=== PATIENT | female | born 1970 | race Caucasian/White ===

== ENCOUNTER 2017-01-30 12:13 | Inpatient (IN) | payer MEDICAID ==
[2017-01-30 14:43] LABS: BASOPHILS # (AUTO) 0.1 X10^3/uL (0.0-0.1); BASOPHILS % (AUTO) 0.7 % (0.2-1.0); EOSINOPHILS # (AUTO) 0.1 x10^3/uL (0.0-0.2); HEMATOCRIT 37.8 % (36.0-47.0); HEMOGLOBIN 12.6 g/dL (12.0-16.0); LYMPHOCYTES # (AUTO) 2.2 X10^3/uL (1.3-2.9); LYMPHOCYTES % (AUTO) 17.8 % (21.0-51.0); MEAN CORPUSCULAR HEMOGLOBIN 29.5 pg (27.0-34.0); MEAN CORPUSCULAR HGB CONC 33.4 g/dL (33.0-35.0); MEAN CORPUSCULAR VOLUME 88.4 fL (80.0-100.0); MEAN PLATELET VOLUME 8.7 fL (7.4-11.0); MONOCYTES # (AUTO) 0.6 x10^3/uL (0.3-0.8); MONOCYTES % (AUTO) 5.1 % (0.0-13.0); NEUTROPHILS # (AUTO) 9.3 x10^3/uL (2.2-4.8); NEUTROPHILS % (AUTO) 75.4 % (42.0-75.0); PLATELET COUNT 601 X10^3/uL (150.0-450.0); RED BLOOD COUNT 4.28 X10^6/uL (3.5-5.4); WHITE BLOOD COUNT 12.3 X10^3/uL (3.6-10.0)
[2017-01-30 14:55] LABS: ALANINE AMINOTRANSFERASE 26 Units/L (12-78); ALBUMIN 2.5 g/dL (3.4-5.0); ALKALINE PHOSPHATASE 206 Units/L (46-116); ASPARTATE AMINO TRANSFERASE 28 Units/L (15-37); BLOOD UREA NITROGEN 11 mg/dL (7-18); CALCIUM 8.7 mg/dL (8.5-10.1); CARBON DIOXIDE 23.2 mmol/L (21-32); CHLORIDE 104 mmol/L (98-107); COR CA(FOR HYPOALB) 9.9 mg/dL (8.5-10.1); CREATININE 0.88 mg/dL (0.55-1.02); SODIUM 138 mmol/L (136-145); TOTAL PROTEIN 7.6 g/dL (6.4-8.2); eGFR BLACK RACES > 60 (>60); eGFR NON BLACK RACES > 60 (>60)
[2017-01-30 15:01] LABS: PLATELET MORPHOLOGY COMMENT NORMAL (NORMAL)
[2017-01-30] MEDS: NS 1000 ML 1,000 ML IV SCH (15:24)
[2017-01-30] MEDS: PERCOCET TAB 5/325 MG PO PRN ×2 (15:38→21:20)
[2017-01-30] MEDS: NICOTINE PATCH TD SCH (15:39)
[2017-01-30] MEDS: VANCOMYCIN HCL 500 MG VIAL 500 MG, VANCOMYCIN HCL 1 GM VIAL 1 GM in D5W 250 ML IV 250 ML IV SCH ×2 (16:35→21:45)
[2017-01-30] MEDS: ZOFRAN INJ 4 MG VIAL IVP PRN (17:06)
[2017-01-30] MEDS: MORPHINE SULFATE INJ 2 MG INJ IVP PRN ×2 (17:27→21:40)
[2017-01-30] MEDS ORDERED: NS 100 ML IV 100 ML IV ONE (17:29)
--- NOTE | 2017-01-30 18:17 | DR.H&P ---
H&P - History & Physical for Day of: H&P Date: 01/30/17 - Chief Complaint Chief Complaint: Right ankle pain with wound - Allergies Allergies/Adverse Reactions: Allergies Allergy/AdvReac Type Severity Reaction Status Date / Time MS Limonoclopramrose AdvReac Verified 03/22/16 15:04 [[facility] - History of Present Illness History of Present Illness: The patient is a 47-year-old white female who presents to the clinic with complaints of increasing pain to the right ankle area. The patient has aan open wound to the right lateral ankle. States 5 months ago she fractured the ankle and had an ORIF with plates and screws placed. States that [address] Michael Gilliam, orthopedist stated that it was not healing right. Patient states that one week ago the surgical site opened up. States that it is increasing in tenderness. States that she cannot put weight on it now. The patient did present to the emergency room at [facility] in [place] and x-ray is unremarkable. Culture did reveal mild staph aureus sensitive to the clindamycin that she's been on. Patient states she is having difficulty taking the clindamycin due to makes her sick on her stomach and she has been throwing up. Patient also states that she has been diagnosed with cancer. Stated she had blood work done at her [facility] that showed presentably as CEA of 7. States that her female workup was negative. States they think she may have colon cancer. States that no further workup has been obtained. States that she does have bleeding with bowel movements and bowel movements are diarrhea. Denies any specific abdominal discomfort. - Past Medical History Past Medical History: CHF, COPD, [place] Additional Medical History: Bronchitis, Sleep Apnea w/ Trilogy, Back Pain, Degenerative Disc Disease, Scoliosis - Past Surgical History Surgical History: Appendectomy, Ortho Surgery, Tonsillectomy Additional Surgical History: Back surgery x2, Neck Surgery x3 - Family History Family Medical History: Diabetes Mellitus, Cancer - Social History Does patient currently use any type of tobacco product: Yes Have you used tobacco products in the last 12 months: Yes Type of Tobacco Use: Cigarettes Does any household member use tobacco: No Alcohol Use: None Drug Use: None - Medications Home Medications: Clonazepam 1 tab PO BID 01/30/17 [History Confirmed 01/30/17] Hydrocodone-Acet 5 mg/325 mg [NORCO 5 MG/325 MG *] 1 tab PO Q4H PRN 01/30/17 [ History Confirmed 01/30/17] Loratadine 10 mg 24-Hr Tab [LORATADINE 10 MG *] 1 tab PO DAILY 01/30/17 [ History Confirmed 01/30/17] Ondansetron HCl [ZOFRAN TAB 4 MG *] 1 tab PO Q4H PRN 01/30/17 [History Confirmed 01/30/17] - Review of Systems Constitutional: Weakness Eyes: No Symptoms Reported ENT: No Symptoms Reported Respiratory: No Symptoms Reported Cardiovascular: No Symptoms Reported Gastrointestinal: Diarrhea, Melena Genitourinary: No Symptoms Reported Musculoskeletal: Other (Ankle pain) Skin: Wound (right ankle) Neurological: No Symptoms Reported - Physical Exam Vital Signs: Temperature 98.3 F Pulse Rate [Left Radial] 98 Respiratory Rate 20 Blood Pressure [Right Arm] 134/79 Blood Pressure [Left Arm] 118/78 Blood Pressure 98/52 O2 Sat by Pulse Oximetry 99 Oriented: Normal Eyes: Normal Ear: Normal Nose: Normal Throat: Normal Respiratory: Clear Throughout Cardiovascular: Normal : Normal Auscultation: Bowel Sounds: Normal Palpation: Normal Tenderness: Normal Skin: Normal Musculoskeletal: Right, Ankle, Tender Psychiatric: Normal Mood Description: Calm Affect: Normal Speech Pattern: Clear - Assessment/Plan (1) Wound of right ankle Status: Acute Plan: CT ankle, Vancomycin (2) Lower GI bleed Status: Acute Plan: CT Abd/Pelvis, Occult blood, CEA (3) Right ankle pain Status: Acute Plan: CT ankle, COnsult Ortho.
[2017-01-30] MEDS ORDERED: ZOFRAN TAB 4 MG PO PRN (18:21)
[2017-01-30] MEDS ORDERED: PERCOCET TAB 5/325 MG PO PRN (18:21)
[2017-01-30] MEDS ORDERED: LASIX PO SCH (19:00)
--- NOTE | 2017-01-30 19:00 | CT ---
CT right lower leg without contrast Indication: Open wound, history of old lower leg fracture. Comparison: None Technique: CT images of the right lower leg from the knee to the ankle were obtained without contrast . Automatic exposure control was utilized. Findings: There is chronic healed distal fibular fracture status post ORIF with lateral buttress plat e and screw construct and single obliquely oriented screw. There are also healed fractures of the med ial malleolus and posterior malleolus with screw fixation. No evidence for hardware failure or loosen ing. No acute fracture or subluxation is identified. No gross osteolysis or bony erosions identified. There is a small non fused os trigonum. There is skin defect overlying the midportion of the fibular buttress plate with adjacent subcutaneou s thickening. No obvious collection is identified, within the limitations of a noncontrast CT. There is minimal subcutaneous edema of the anterior and medial ankle without skin defect. Impression: Healed distal fibular and tibial fractures status post ORIF with skin ulceration overlying the fibula r sideplate. No evidence for osteomyelitis or obvious soft tissue collection to suggest abscess, with in the limitations of a noncontrast CT. Reported By:
[2017-01-30] MEDS: SINEquan PO SCH (21:19)
[2017-01-30] MEDS: NEURONTIN CAP 300 MG PO SCH (21:19)
[2017-01-30] MEDS: KLONOPIN TAB 1 MG PO SCH (21:19)
[2017-01-30 21:41] LABS: BILIRUBIN,URINE NEGATIVE (NEGATIVE); BLOOD/HEMOGLOBIN,URINE 1+ (NEGATIVE); GLUCOSE, URINE NEGATIVE (NEGATIVE); KETONES,URINE NEGATIVE (NEGATIVE); LEUKOCYTE ESTERASE ,URINE NEGATIVE (NEGATIVE); NITRITES,URINE NEGATIVE (NEGATIVE); PROTEIN,URINE 1+ (NEGATIVE); UROBILINOGEN,URINE NORMAL (NORMAL)
[2017-01-30 21:50] LABS: APPEARANCE,URINE CLEAR (CLEAR); BACTERIA,URINE 1+ /HPF (NEGATIVE); COLOR,URINE YELLOW (YELLOW); HYALINE CASTS, URINE RARE /LPF (NEGATIVE); SQUAMOUS EPITHELIAL CELL,UR FEW /HPF (NEGATIVE)
[2017-01-30 21:53] VITALS: BMI 27.4
[2017-01-30] MEDS: PROVENTIL NEB TX 0.083% 2.5MG/ 3ML NEB SCH (23:54)
[2017-01-31] MEDS: MORPHINE SULFATE INJ 2 MG INJ IVP PRN ×6 (01:38→22:16)
[2017-01-31] MEDS: PERCOCET TAB 5/325 MG PO PRN ×4 (03:20→22:23)
[2017-01-31] MEDS: PROVENTIL NEB TX 0.083% 2.5MG/ 3ML NEB SCH ×3 (05:24→17:30)
[2017-01-31] MEDS: NS 1000 ML 1,000 ML IV SCH ×3 (05:32→15:40)
[2017-01-31] MEDS: NEURONTIN CAP 300 MG PO SCH ×3 (05:33→22:23)
[2017-01-31 05:37] LABS: ALANINE AMINOTRANSFERASE 20 Units/L (12-78); ALBUMIN 2.2 g/dL (3.4-5.0); ALKALINE PHOSPHATASE 173 Units/L (46-116); ASPARTATE AMINO TRANSFERASE 19 Units/L (15-37); BLOOD UREA NITROGEN 15 mg/dL (7-18); CALCIUM 8.4 mg/dL (8.5-10.1); CARBON DIOXIDE 23.4 mmol/L (21-32); CHLORIDE 101 mmol/L (98-107); COR CA(FOR HYPOALB) 9.8 mg/dL (8.5-10.1); CREATININE 0.99 mg/dL (0.55-1.02); SODIUM 134 mmol/L (136-145); TOTAL PROTEIN 6.4 g/dL (6.4-8.2); eGFR BLACK RACES > 60 (>60); eGFR NON BLACK RACES > 60 (>60)
[2017-01-31 06:21] LABS: BASOPHILS # (AUTO) 0.1 X10^3/uL (0.0-0.1); BASOPHILS % (AUTO) 0.6 % (0.2-1.0); EOSINOPHILS # (AUTO) 0.2 x10^3/uL (0.0-0.2); EOSINOPHILS % (AUTO) 1.9 % (0.9-2.9); HEMATOCRIT 34.5 % (36.0-47.0); HEMOGLOBIN 11.4 g/dL (12.0-16.0); LYMPHOCYTES # (AUTO) 2.3 X10^3/uL (1.3-2.9); LYMPHOCYTES % (AUTO) 19.5 % (21.0-51.0); MEAN CORPUSCULAR HEMOGLOBIN 29.6 pg (27.0-34.0); MEAN CORPUSCULAR HGB CONC 33.1 g/dL (33.0-35.0); MEAN CORPUSCULAR VOLUME 89.5 fL (80.0-100.0); MEAN PLATELET VOLUME 9.2 fL (7.4-11.0); MONOCYTES # (AUTO) 1.1 x10^3/uL (0.3-0.8); MONOCYTES % (AUTO) 9.3 % (0.0-13.0); NEUTROPHILS % (AUTO) 68.7 % (42.0-75.0); PLATELET COUNT 501 X10^3/uL (150.0-450.0); RED BLOOD COUNT 3.85 X10^6/uL (3.5-5.4); RED CELL DISTRIBUTION WIDTH 16.8 % (11.6-16.5); WHITE BLOOD COUNT 11.6 X10^3/uL (3.6-10.0)
--- NOTE | 2017-01-31 06:52 | CT ---
CT abdomen and pelvis without and with contrast Indication: GI bleed Comparison: None Technique: CT images of the abdomen and pelvis were obtained without and with IV contrast. Oral contr ast was also administered. Automatic exposure control was utilized. Findings: Previous posterior interbody fusion L4-5 is noted. No aggressive osseous lesions. There is a small right pleural effusion. Noncontrast CT: No urinary stones or radiopaque cholelithiasis identified. There is a 9 mm calcificat ion of the pancreatic head. Postcontrast CT: The liver, gallbladder, spleen, stomach, duodenum, pancreas, adrenals, and kidneys d emonstrate no significant abnormality. The oral contrast is present to the level of the cecum, with t he majority in the distal jejunum and ileum. No significant bowel thickening or dilatation of the low er GI tract identified. No abnormal intraluminal density of the bowel to suggest overt bleed. Previou s appendectomy is noted. The uterus and ovaries are noted. The urinary bladder and rectum are unremar kable. No free fluid or adenopathy. Impression: 1. No GI bleed identified, although the examination is limited secondary to administration of positiv e oral contrast. 2. No acute abnormality. 3. Coarse calcification in the pancreatic head, possibly sequela from chronic pancreatitis. Correlati on recommended. 4. Small right pleural effusion Reported By:
[2017-01-31] MEDS: CLARITIN PO SCH (08:20)
[2017-01-31] MEDS: CELEXA PO SCH (08:20)
[2017-01-31] MEDS: NICOTINE PATCH TD SCH (08:20)
[2017-01-31] MEDS: ZESTRIL TAB 5 MG PO SCH (08:20)
[2017-01-31] MEDS: K-DUR TAB 20 MEQ PO SCH (08:20)
[2017-01-31] MEDS: PriLOSEC PO SCH (08:20)
[2017-01-31] MEDS: KLONOPIN TAB 1 MG PO SCH ×2 (08:20→20:52)
[2017-01-31 09:59] LABS: C-REACTIVE PROTEIN 5.2 mg/L (0-3.0)
[2017-01-31] MEDS: VANCOMYCIN HCL 500 MG VIAL 500 MG, VANCOMYCIN HCL 1 GM VIAL 1 GM in D5W 250 ML IV 250 ML IV SCH ×2 (10:51→22:22)
--- NOTE | 2017-01-31 13:33 | RAD ---
Right ankle, three views Indication: Fall with ankle pain Comparison: CT 01/30/2017 Findings: Healed, internally fixated fractures of the distal tibia and fibula are unchanged in alignm ent without hardware complication. No acute fracture or malalignment is identified. Mild degenerative changes of the tibiotalar joint are noted. Shallow ulcer overlying the distal fibular diaphysis is a gain noted without soft tissue gas or gross bony destruction. There is mild subcutaneous edema of the medial and lateral ankle. No appreciable effusion is identified. Impression: Shallow ulcer overlying the distal fibular diaphysis without soft tissue gas or bony destruction to s uggest osteomyelitis. Stable, healed internally fixated distal fibular and tibial fractures without hardware complication o r acute osseous abnormality. Reported By:
[2017-01-31] MEDS: ZOFRAN INJ 4 MG VIAL IVP PRN (14:32)
--- NOTE | 2017-01-31 16:58 | DR.CONSULT ---
Consult - Consultation for Day of: Date: 01/31/17 (Thanks for the consult) - Chief Complaint Chief Complaint: rt ankle non healing wound. - Allergies Allergies/Adverse Reactions: Allergies Allergy/AdvReac Type Severity Reaction Status Date / Time metoclopramide [From Reglan] Allergy Verified 01/31/17 08:12 - History of Present Illness History of Present Illness: rt ankle surgery 5 months ago. non healing wound. lateral skin incision. - Past Medical History Past Medical History: CHF, COPD, [place] Additional Medical History: Bronchitis, Sleep Apnea w/ Trilogy, Back Pain, Degenerative Disc Disease, Scoliosis - Past Surgical History Surgical History: Appendectomy, Ortho Surgery, Tonsillectomy Additional Surgical History: Back surgery x2, Neck Surgery x3 - Family History Family Medical History: Diabetes Mellitus, Cancer - Social History Does patient currently use any type of tobacco product: Yes Have you used tobacco products in the last 12 months: Yes Type of Tobacco Use: Cigarettes Does any household member use tobacco: No Alcohol Use: None Drug Use: None - Medications Home Medications: Clonazepam 1 tab PO BID 01/30/17 [History Confirmed 01/30/17] Hydrocodone-Acet 5 mg/325 mg [NORCO 5 MG/325 MG *] 1 tab PO Q4H PRN 01/30/17 [ History Confirmed 01/30/17] Loratadine 10 mg 24-Hr Tab [LORATADINE 10 MG *] 1 tab PO DAILY 01/30/17 [ History Confirmed 01/30/17] Ondansetron HCl [ZOFRAN TAB 4 MG *] 1 tab PO Q4H PRN 01/30/17 [History Confirmed 01/30/17] - Physical Exam Vital Signs: Temperature 97.9 F Pulse Rate [Left Radial] 96 Pulse Rate 100 Respiratory Rate 20 Blood Pressure [Right Arm] 108/58 Blood Pressure [Left Arm] 118/78 Blood Pressure 98/52 O2 Sat by Pulse Oximetry 97 Musculoskeletal: Right, Ankle, Tender (wound dehisence with exposed plate. ) - Plan Plan: debridment and closure of wound. XR and CT still shows some fracture line. It is too early to remove the implant. and CT does not definetively show osteomyelitis. Will need MRI for defenitive diagnosis.
[2017-01-31] MEDS ORDERED: BENADRYL CAP/TAB 25 MG PO PRN (18:15)
[2017-01-31] MEDS: SINEquan PO SCH (20:52)
[2017-01-31] MEDS: AMBIEN PO PRN (21:30)
[2017-01-31 21:48] LABS: CREATININE 1.06 mg/dL (0.55-1.02)
[2017-01-31 22:03] LABS: VANCOMYCIN,TROUGH 32.9 ug/mL (15-20)
[2017-02-01] MEDS: PROVENTIL NEB TX 0.083% 2.5MG/ 3ML NEB SCH ×4 (00:47→17:30)
[2017-02-01] MEDS: PERCOCET TAB 5/325 MG PO PRN ×2 (04:30→17:45)
[2017-02-01 05:52] LABS: BASOPHILS % (AUTO) 0.4 % (0.2-1.0); EOSINOPHILS # (AUTO) 0.3 x10^3/uL (0.0-0.2); EOSINOPHILS % (AUTO) 2.7 % (0.9-2.9); HEMATOCRIT 31.3 % (36.0-47.0); HEMOGLOBIN 10.5 g/dL (12.0-16.0); LYMPHOCYTES # (AUTO) 1.8 X10^3/uL (1.3-2.9); MEAN CORPUSCULAR HEMOGLOBIN 30.5 pg (27.0-34.0); MEAN CORPUSCULAR HGB CONC 33.5 g/dL (33.0-35.0); MEAN CORPUSCULAR VOLUME 91.1 fL (80.0-100.0); MEAN PLATELET VOLUME 9.1 fL (7.4-11.0); MONOCYTES % (AUTO) 9.5 % (0.0-13.0); NEUTROPHILS # (AUTO) 7.5 x10^3/uL (2.2-4.8); NEUTROPHILS % (AUTO) 70.4 % (42.0-75.0); PLATELET COUNT 449 X10^3/uL (150.0-450.0); RED BLOOD COUNT 3.44 X10^6/uL (3.5-5.4); RED CELL DISTRIBUTION WIDTH 16.6 % (11.6-16.5); WHITE BLOOD COUNT 10.6 X10^3/uL (3.6-10.0)
[2017-02-01] MEDS: NEURONTIN CAP 300 MG PO SCH ×3 (06:00→21:18)
[2017-02-01] MEDS: NS 1000 ML 1,000 ML IV SCH ×3 (06:11→17:53)
[2017-02-01 06:26] LABS: ALANINE AMINOTRANSFERASE 18 Units/L (12-78); ALBUMIN 1.9 g/dL (3.4-5.0); ALKALINE PHOSPHATASE 161 Units/L (46-116); ASPARTATE AMINO TRANSFERASE 16 Units/L (15-37); BLOOD UREA NITROGEN 16 mg/dL (7-18); CALCIUM 7.9 mg/dL (8.5-10.1); CARBON DIOXIDE 22.5 mmol/L (21-32); CHLORIDE 106 mmol/L (98-107); COR CA(FOR HYPOALB) 9.6 mg/dL (8.5-10.1); CREATININE 1.18 mg/dL (0.55-1.02); SODIUM 138 mmol/L (136-145); TOTAL PROTEIN 5.7 g/dL (6.4-8.2); eGFR BLACK RACES > 60 (>60); eGFR NON BLACK RACES 52 (>60)
[2017-02-01] MEDS: MORPHINE SULFATE INJ 2 MG INJ IVP PRN ×4 (06:50→21:19)
[2017-02-01 07:19] LABS: VANCOMYCIN,TROUGH 26.9 ug/mL (15-20)
[2017-02-01] MEDS: CELEXA PO SCH (08:45)
[2017-02-01] MEDS: ZESTRIL TAB 5 MG PO SCH (08:45)
[2017-02-01] MEDS: K-DUR TAB 20 MEQ PO SCH (08:45)
[2017-02-01] MEDS: PriLOSEC PO SCH (08:45)
[2017-02-01] MEDS: KLONOPIN TAB 1 MG PO SCH ×2 (08:45→21:19)
[2017-02-01] MEDS: CLARITIN PO SCH (08:45)
[2017-02-01] MEDS: PHARMACY CONSULT - VANCOMYCIN XX SCH (09:17)
[2017-02-01] MEDS: NICOTINE PATCH TD SCH (09:18)
[2017-02-01] MEDS ORDERED: EPHEDRINE SULFATE INJ ONE (10:04)
[2017-02-01] MEDS ORDERED: VERSED ONE (10:04)
[2017-02-01] MEDS ORDERED: DIPRIVAN VIAL ONE (10:04)
[2017-02-01] MEDS ORDERED: SUPRANE IN ONE (10:04)
[2017-02-01] MEDS ORDERED: NS 1000 ML 1,000 ML ONE (12:08)
[2017-02-01] MEDS ORDERED: HYDROGEN PEROXIDE 3% ONE (12:41)
[2017-02-01] MEDS ORDERED: FENTANYL INJ 100 mcg ONE (12:47)
[2017-02-01] MEDS ORDERED: NS IRRIGATION 1000 ML 1,000 ML with BACITRACIN VIAL 50,000 UNT IR ONE ×2 (13:12)
[2017-02-01] MEDS: BACTROBAN OINT ONE ×2 (13:38→14:14)
[2017-02-01] MEDS ORDERED: ZOFRAN INJ 4 MG VIAL IVP PRN ×2 (14:29→15:00)
[2017-02-01] MEDS ORDERED: PHENERGAN INJ 25 MG IVP PRN (14:29)
[2017-02-01] MEDS ORDERED: BENADRYL INJ 50 MG VIAL IVP PRN (14:29)
[2017-02-01] MEDS ORDERED: REGLAN INJ 10 MG VIAL IVP PRN (14:29)
[2017-02-01] MEDS: DILAUDID INJ IVP PRN ×3 (14:43→14:53)
--- NOTE | 2017-02-01 15:11 | RAD ---
HISTORY: Postop hardware removal. Prior fracture 5 months prior. Recent fall a couple of nights ag o. Right ankle pain. Study: Right ankle: Three views Comparison: 01/31/2017 Findings: Again noted is the distal fibular fracture. The fracture line still well visualized. A splint is in place that obscures fine bony detail. The screw and plate fixation device traversing the fibular fr acture has been removed. The screws through the medial malleolus and posterior malleolus are still p resent. There is a questionable lucency circular in configuration involving the more proximal tibia at approximately the mid shaft of measuring 11 mm in maximum dimension. This can only be seen on lat eral radiograph with certainty. This could potentially be artifactual from the splint. Clinical cor relation is recommended. There is irregularity of the tibial plafond from the previous trauma. IMPRESSION: 1. Interval removal of the screw and plate fixation device across the still visualize fracture of th e distal fibula. 2. There is a lucency projected over the shaft of the tibia approximately 14 cm above the talus, pos sibly artifactual from the splint. Follow-up is recommended. Reported By:
[2017-02-01 15:57] LABS: CREATININE 1.14 mg/dL (0.55-1.02); VANCOMYCIN,TROUGH 17.2 ug/mL (15-20)
[2017-02-01] MEDS: AMBIEN PO PRN (21:18)
[2017-02-01] MEDS: SINEquan PO SCH (21:18)
[2017-02-02] MEDS: PROVENTIL NEB TX 0.083% 2.5MG/ 3ML NEB SCH ×5 (00:55→17:04)
[2017-02-02] MEDS: NS 1000 ML 1,000 ML IV SCH ×2 (05:14→23:35)
[2017-02-02] MEDS: NEURONTIN CAP 300 MG PO SCH ×3 (05:14→21:08)
[2017-02-02] MEDS: PERCOCET TAB 5/325 MG PO PRN ×2 (05:23→12:08)
[2017-02-02 05:26] LABS: BASOPHILS % (AUTO) 0.3 % (0.2-1.0); EOSINOPHILS # (AUTO) 0.2 x10^3/uL (0.0-0.2); EOSINOPHILS % (AUTO) 1.8 % (0.9-2.9); HEMATOCRIT 28.6 % (36.0-47.0); HEMOGLOBIN 9.4 g/dL (12.0-16.0); LYMPHOCYTES # (AUTO) 0.7 X10^3/uL (1.3-2.9); LYMPHOCYTES % (AUTO) 5.3 % (21.0-51.0); MEAN CORPUSCULAR HGB CONC 32.8 g/dL (33.0-35.0); MEAN CORPUSCULAR VOLUME 91.4 fL (80.0-100.0); MEAN PLATELET VOLUME 9.3 fL (7.4-11.0); MONOCYTES # (AUTO) 1.1 x10^3/uL (0.3-0.8); MONOCYTES % (AUTO) 8.5 % (0.0-13.0); NEUTROPHILS # (AUTO) 11.4 x10^3/uL (2.2-4.8); NEUTROPHILS % (AUTO) 84.1 % (42.0-75.0); PLATELET COUNT 450 X10^3/uL (150.0-450.0); RED BLOOD COUNT 3.13 X10^6/uL (3.5-5.4); RED CELL DISTRIBUTION WIDTH 16.7 % (11.6-16.5); WHITE BLOOD COUNT 13.5 X10^3/uL (3.6-10.0)
[2017-02-02 05:39] LABS: ALANINE AMINOTRANSFERASE 17 Units/L (12-78); ALBUMIN 1.8 g/dL (3.4-5.0); ALKALINE PHOSPHATASE 156 Units/L (46-116); ASPARTATE AMINO TRANSFERASE 23 Units/L (15-37); BLOOD UREA NITROGEN 15 mg/dL (7-18); CALCIUM 8.1 mg/dL (8.5-10.1); CARBON DIOXIDE 21.3 mmol/L (21-32); CHLORIDE 108 mmol/L (98-107); COR CA(FOR HYPOALB) 9.9 mg/dL (8.5-10.1); COR NA(FOR HYPERGLY) 138 mmol/L (136-145); CREATININE 0.98 mg/dL (0.55-1.02); SODIUM 137 mmol/L (136-145); TOTAL PROTEIN 5.6 g/dL (6.4-8.2); eGFR BLACK RACES > 60 (>60); eGFR NON BLACK RACES > 60 (>60)
[2017-02-02] MEDS: ZESTRIL TAB 5 MG PO SCH (09:46)
[2017-02-02] MEDS: K-DUR TAB 20 MEQ PO SCH (09:46)
[2017-02-02] MEDS: CELEXA PO SCH (09:46)
[2017-02-02] MEDS: CLARITIN PO SCH (09:47)
[2017-02-02] MEDS: NICOTINE PATCH TD SCH (09:47)
[2017-02-02] MEDS: PriLOSEC PO SCH (09:47)
[2017-02-02] MEDS: KLONOPIN TAB 1 MG PO SCH ×2 (09:47→20:39)
[2017-02-02] MEDS: MORPHINE SULFATE INJ 2 MG INJ IVP PRN ×2 (09:48→16:14)
[2017-02-02] MEDS: VANCOMYCIN 1 GM PREMIX (ADDVANTAGE) 250 ML IV SCH ×2 (09:52→20:40)
[2017-02-02] MEDS: NORCO 5/325 MG TAB PO PRN (13:51)
[2017-02-02] MEDS ORDERED: PROCALAMINE 3 % 1,000 ML IV SCH ×2 (16:00→23:45)
[2017-02-02] MEDS: PERCOCET TAB 5/325 MG PO SCH ×2 (17:22→21:08)
[2017-02-02] MEDS: SINEquan PO SCH (20:39)
[2017-02-02] MEDS: AMBIEN PO PRN (20:39)
[2017-02-03] MEDS: PROVENTIL NEB TX 0.083% 2.5MG/ 3ML NEB SCH ×4 (00:49→16:34)
[2017-02-03] MEDS: PERCOCET TAB 5/325 MG PO SCH ×4 (03:25→21:47)
[2017-02-03] MEDS: NEURONTIN CAP 300 MG PO SCH ×3 (05:16→21:47)
[2017-02-03] MEDS: NS 1000 ML 1,000 ML IV SCH ×3 (05:17→21:49)
[2017-02-03 06:06] LABS: ALANINE AMINOTRANSFERASE 17 Units/L (12-78); ALBUMIN 1.7 g/dL (3.4-5.0); ALKALINE PHOSPHATASE 163 Units/L (46-116); ASPARTATE AMINO TRANSFERASE 17 Units/L (15-37); BLOOD UREA NITROGEN 11 mg/dL (7-18); CALCIUM 8.4 mg/dL (8.5-10.1); CARBON DIOXIDE 23.5 mmol/L (21-32); CHLORIDE 108 mmol/L (98-107); COR CA(FOR HYPOALB) 10.2 mg/dL (8.5-10.1); SODIUM 139 mmol/L (136-145); TOTAL PROTEIN 5.8 g/dL (6.4-8.2); eGFR BLACK RACES > 60 (>60); eGFR NON BLACK RACES > 60 (>60)
[2017-02-03 06:07] LABS: BASOPHILS # (AUTO) 0.1 X10^3/uL (0.0-0.1); BASOPHILS % (AUTO) 0.8 % (0.2-1.0); EOSINOPHILS # (AUTO) 0.3 x10^3/uL (0.0-0.2); EOSINOPHILS % (AUTO) 2.5 % (0.9-2.9); HEMATOCRIT 29.1 % (36.0-47.0); HEMOGLOBIN 9.6 g/dL (12.0-16.0); LYMPHOCYTES # (AUTO) 1.5 X10^3/uL (1.3-2.9); LYMPHOCYTES % (AUTO) 13.4 % (21.0-51.0); MEAN CORPUSCULAR HEMOGLOBIN 30.4 pg (27.0-34.0); MEAN CORPUSCULAR HGB CONC 33.1 g/dL (33.0-35.0); MEAN CORPUSCULAR VOLUME 91.8 fL (80.0-100.0); MEAN PLATELET VOLUME 9.4 fL (7.4-11.0); MONOCYTES # (AUTO) 1.3 x10^3/uL (0.3-0.8); MONOCYTES % (AUTO) 11.4 % (0.0-13.0); NEUTROPHILS # (AUTO) 8.3 x10^3/uL (2.2-4.8); NEUTROPHILS % (AUTO) 71.9 % (42.0-75.0); PLATELET COUNT 468 X10^3/uL (150.0-450.0); RED BLOOD COUNT 3.17 X10^6/uL (3.5-5.4); RED CELL DISTRIBUTION WIDTH 16.7 % (11.6-16.5); WHITE BLOOD COUNT 11.6 X10^3/uL (3.6-10.0)
[2017-02-03] MEDS: NICOTINE PATCH TD SCH (09:05)
[2017-02-03] MEDS: CELEXA PO SCH (09:06)
[2017-02-03] MEDS: PriLOSEC PO SCH (09:08)
[2017-02-03] MEDS: CLARITIN PO SCH (09:08)
[2017-02-03] MEDS: VANCOMYCIN 1 GM PREMIX (ADDVANTAGE) 250 ML IV SCH ×2 (09:09→21:46)
[2017-02-03] MEDS: KLONOPIN TAB 1 MG PO SCH ×2 (09:09→20:46)
[2017-02-03] MEDS: ZESTRIL TAB 5 MG PO SCH (09:09)
[2017-02-03] MEDS: K-DUR TAB 20 MEQ PO SCH (09:09)
[2017-02-03] MEDS: NORCO 5/325 MG TAB PO PRN (13:23)
--- NOTE | 2017-02-03 14:15 | RAD ---
Examination: Chest, portable AP History: CHF, hypertension and COPD Comparison reference: 04/21/2016 Findings: Continued upper normal heart size, transverse diameter accentuated by nonstandard projectio n. The central pulmonary vessels are mildly distended. There is no evidence for infiltrate, pulmonary edema, pneumothorax. A small right pleural effusion is suggested. Impression: Stable cardiac prominence with mild pulmonary vascular congestion. Suspect small right pl eural effusion. Reported By:
--- NOTE | 2017-02-03 14:28 | PCM.PROG ---
Progress Note - Progress Note for Day of Date: 02/02/17 - Subjective Subjective: doing well. splint in place. no soakage seen. awaiting the culture rport. - Past Medical Family Social History Allergies: Allergies metoclopramide [From Reglan] Allergy (Verified 01/31/17 08:12) - Vital Signs and I&O's Vital Signs: Temperature 98.7 F Pulse Rate [Left Radial] 119 Pulse Rate 98 Respiratory Rate 20 Blood Pressure [Right Arm] 87/53 Blood Pressure [Left Arm] 117/56 Blood Pressure 119/70 O2 Sat by Pulse Oximetry 95 Intake and Output: Intake & Output 02/01/17 02/02/17 02/03/17 02/04/17 11:59 11:59 11:59 11:59 Intake Total 2040 1560 2730 Output Total 1400 995 Balance 982 388 3365 - Physical Exam Oriented: Normal Eyes: Normal Ear: Normal Nose: Normal Throat: Normal Cardiovascular: Normal : Normal Auscultation: Bowel Sounds: Normal Tenderness: Normal Skin: Normal Musculoskeletal: Right, Ankle, Tender (wound dehisence with exposed plate. ) Psychiatric: Normal Mood Description: Calm Affect: Normal Speech Pattern: Clear, Appropriate - Laboratory and Diagnostics Result Diagrams: 02/03/17 04:15 02/03/17 04:15 Labs: 02/01/17 13:18 Ankle - Right Gram Stain - Final 02/01/17 13:18 Ankle - Right Wound Culture - Preliminary 01/31/17 10:48 Ankle - Right Gram Stain - Final 01/31/17 10:48 Ankle - Right Wound Culture - Final 01/30/17 14:31 Blood Blood Culture - Preliminary 01/30/17 14:21 Blood Blood Culture - Preliminary Laboratory WBC 11.6 X10^3/uL (3.6-10.0) H 02/03/17 04:15 RBC 3.17 X10^6/uL (3.5-5.4) L 02/03/17 04:15 Hgb 9.6 g/dL (12.0-16.0) L 02/03/17 04:15 Hct 29.1 % (36.0-47.0) L 02/03/17 04:15 MCV 91.8 fL (80.0-100.0) 02/03/17 04:15 MCH 30.4 pg (27.0-34.0) 02/03/17 04:15 MCHC 33.1 g/dL (33.0-35.0) 02/03/17 04:15 RDW 16.7 % (11.6-16.5) H 02/03/17 04:15 Plt Count 468 X10^3/uL (150.0-450.0) H 02/03/17 04:15 Plt Count Comment Increased (ADEQUATE) A 01/30/17 14:21 MPV 9.4 fL (7.4-11.0) 02/03/17 04:15 Neut % 71.9 % (42.0-75.0) 02/03/17 04:15 Lymph % 13.4 % (21.0-51.0) L 02/03/17 04:15 [place] % 11.4 % (0.0-13.0) 02/03/17 04:15 Eos % 2.5 % (0.9-2.9) 02/03/17 04:15 Baso % 0.8 % (0.2-1.0) 02/03/17 04:15 Neut # 8.3 x10^3/uL (2.2-4.8) H 02/03/17 04:15 Lymph # 1.5 X10^3/uL (1.3-2.9) 02/03/17 04:15 [place] # 1.3 x10^3/uL (0.3-0.8) H 02/03/17 04:15 Eos # 0.3 x10^3/uL (0.0-0.2) H 02/03/17 04:15 Baso # 0.1 X10^3/uL (0.0-0.1) 02/03/17 04:15 Absolute Nucleated RBC 0.0 /100WBC 02/03/17 04:15 Plt Morphology Comment Normal (NORMAL) 01/30/17 14:21 RBC Morphology Normal (NORMAL) 01/30/17 14:21 ESR 37 MM/HOUR (0-20) H 01/31/17 03:35 Sodium 139 mmol/L (136-145) 02/03/17 04:15 Corrected Sodium TNP 02/03/17 04:15 Potassium 4.3 mmol/L (3.5-5.1) 02/03/17 04:15 Chloride 108 mmol/L (98-107) H 02/03/17 04:15 Carbon Dioxide 23.5 mmol/L (21-32) 02/03/17 04:15 BUN 11 mg/dL (7-18) 02/03/17 04:15 Creatinine 0.80 mg/dL (0.55-1.02) 02/03/17 04:15 Est GFR (MDRD) Af Amer > 60 (>60) 02/03/17 04:15 Est GFR (MDRD) Non-Af > 60 (>60) 02/03/17 04:15 Glucose 86 mg/dL (65-99) 02/03/17 04:15 Calcium 8.4 mg/dL (8.5-10.1) L 02/03/17 04:15 Corrected Calcium 10.2 mg/dL (8.5-10.1) H 02/03/17 04:15 Total Bilirubin 0.60 mg/dL (0.2-1.0) 02/03/17 04:15 AST 17 Units/L (15-37) 02/03/17 04:15 ALT 17 Units/L (12-78) 02/03/17 04:15 Alkaline Phosphatase 163 Units/L (46-116) H 02/03/17 04:15 C-Reactive Protein 5.20 mg/L (0-3.0) H 01/31/17 03:35 Total Protein 5.8 g/dL (6.4-8.2) L 02/03/17 04:15 Albumin 1.7 g/dL (3.4-5.0) L 02/03/17 04:15 Globulin 4.1 g/dL (2.5-4.5) 02/03/17 04:15 Albumin/Globulin Ratio 0.4 Ratio (1.1-2.1) L 02/03/17 04:15 Amylase 19 Units/L (25-115) L 01/31/17 03:35 Lipase 50 Units/L (73-393) L 01/31/17 03:35 Carcinoembryonic Ag 6.2 ng/mL (0.0-3.0) H 01/30/17 14:21 Specimen Type Clean catch urine 01/30/17 21:33 Urine Color Yellow (YELLOW) 01/30/17 21:33 Urine Appearance Clear (CLEAR) 01/30/17 21: Urine pH 5.0 (5.0 - 8.0) 01/30/17 21:33 Ur Specific [place] 1.010 (1.000-1.030) 01/30/17 21: Urine Protein 1+ (NEGATIVE) 01/30/17 21: Urine Glucose (UA) Negative (NEGATIVE) 01/30/17 21: Urine Ketones Negative (NEGATIVE) 01/30/17 21: Urine Occult Blood 1+ (NEGATIVE) 01/30/17 21: Urine Nitrite Negative (NEGATIVE) 01/30/17 21: Urine Bilirubin Negative (NEGATIVE) 01/30/17 21: Urine Urobilinogen Normal (NORMAL) 01/30/17 21:33 Ur Leukocyte Esterase Negative (NEGATIVE) 01/30/17 21:33 Urine RBC 2-3 /HPF (NEGATIVE) 01/30/17 21:33 Urine WBC 0-1 /HPF (NEGATIVE) 01/30/17 21:33 Ur Squamous Epith Cells Few /HPF (NEGATIVE) 01/30/17 21:33 Urine Bacteria 1+ /HPF (NEGATIVE) 01/30/17 21: Hyaline Casts Rare /LPF (NEGATIVE) 01/30/17 21:33 Ur Culture Indicated? No/not indicated 01/30/17 21:33 Stool Description 150 g ibarra/loose 02/02/17 21:00 Stl Occult Blood (IFOB) Negative (NEGATIVE) 02/02/17 21:00 Vancomycin Trough 17.2 ug/mL (15-20) 02/01/17 15:36 - Plan (1) Wound of right ankle Status: Acute Plan: NON weight bearing till further advise. follow up asa dvised. keep the dressing cleana nd dry.
[2017-02-03] MEDS: MORPHINE SULFATE INJ 2 MG INJ IVP PRN (15:14)
[2017-02-03] MEDS: AMBIEN PO PRN (20:45)
[2017-02-03] MEDS: SINEquan PO SCH (20:45)
[2017-02-03] MEDS: PHARMACY CONSULT - VANCOMYCIN XX SCH (21:00)
[2017-02-03 21:09] LABS: CREATININE 0.81 mg/dL (0.55-1.02)
[2017-02-04] MEDS: PROVENTIL NEB TX 0.083% 2.5MG/ 3ML NEB SCH ×4 (00:59→17:03)
[2017-02-04] MEDS: PERCOCET TAB 5/325 MG PO SCH ×5 (04:58→21:06)
[2017-02-04] MEDS: NEURONTIN CAP 300 MG PO SCH ×3 (05:00→21:05)
[2017-02-04 06:24] LABS: ALANINE AMINOTRANSFERASE 13 Units/L (12-78); ALBUMIN 1.6 g/dL (3.4-5.0); ALKALINE PHOSPHATASE 144 Units/L (46-116); ASPARTATE AMINO TRANSFERASE 15 Units/L (15-37); BLOOD UREA NITROGEN 10 mg/dL (7-18); CALCIUM 8.1 mg/dL (8.5-10.1); CARBON DIOXIDE 23.2 mmol/L (21-32); CHLORIDE 109 mmol/L (98-107); CREATININE 0.79 mg/dL (0.55-1.02); SODIUM 140 mmol/L (136-145); TOTAL PROTEIN 5.5 g/dL (6.4-8.2); eGFR BLACK RACES > 60 (>60); eGFR NON BLACK RACES > 60 (>60)
[2017-02-04 06:28] LABS: BASOPHILS # (AUTO) 0.1 X10^3/uL (0.0-0.1); BASOPHILS % (AUTO) 0.6 % (0.2-1.0); EOSINOPHILS # (AUTO) 0.4 x10^3/uL (0.0-0.2); HEMATOCRIT 26.8 % (36.0-47.0); LYMPHOCYTES # (AUTO) 1.7 X10^3/uL (1.3-2.9); LYMPHOCYTES % (AUTO) 18.2 % (21.0-51.0); MEAN CORPUSCULAR HEMOGLOBIN 30.5 pg (27.0-34.0); MEAN CORPUSCULAR HGB CONC 33.7 g/dL (33.0-35.0); MEAN CORPUSCULAR VOLUME 90.5 fL (80.0-100.0); MEAN PLATELET VOLUME 9.5 fL (7.4-11.0); MONOCYTES # (AUTO) 1.1 x10^3/uL (0.3-0.8); MONOCYTES % (AUTO) 11.6 % (0.0-13.0); NEUTROPHILS # (AUTO) 6.2 x10^3/uL (2.2-4.8); NEUTROPHILS % (AUTO) 65.6 % (42.0-75.0); PLATELET COUNT 449 X10^3/uL (150.0-450.0); RED BLOOD COUNT 2.96 X10^6/uL (3.5-5.4); RED CELL DISTRIBUTION WIDTH 16.7 % (11.6-16.5); WHITE BLOOD COUNT 9.5 X10^3/uL (3.6-10.0)
[2017-02-04] MEDS: VANCOMYCIN 1 GM PREMIX (ADDVANTAGE) 250 ML IV SCH ×2 (08:23→21:06)
[2017-02-04] MEDS: KLONOPIN TAB 1 MG PO SCH ×2 (08:24→21:06)
[2017-02-04] MEDS: PriLOSEC PO SCH (08:24)
[2017-02-04] MEDS: K-DUR TAB 20 MEQ PO SCH (08:24)
[2017-02-04] MEDS: ZESTRIL TAB 5 MG PO SCH (08:25)
[2017-02-04] MEDS: CLARITIN PO SCH (08:25)
[2017-02-04] MEDS: NICOTINE PATCH TD SCH (08:25)
[2017-02-04] MEDS: CELEXA PO SCH (08:25)
[2017-02-04] MEDS: MORPHINE SULFATE INJ 2 MG INJ IVP PRN (11:47)
[2017-02-04] MEDS: NORCO 5/325 MG TAB PO PRN (14:09)
[2017-02-04] MEDS: SINEquan PO SCH (21:05)
[2017-02-04] MEDS: AMBIEN PO PRN (21:06)
[2017-02-04] MEDS: PHARMACY CONSULT - VANCOMYCIN XX SCH (22:16)
[2017-02-04] MEDS: NS 1000 ML 1,000 ML IV SCH (22:16)
[2017-02-05] MEDS: PROVENTIL NEB TX 0.083% 2.5MG/ 3ML NEB SCH ×4 (00:48→16:59)
[2017-02-05] MEDS: PERCOCET TAB 5/325 MG PO SCH ×4 (04:05→22:06)
[2017-02-05] MEDS: MORPHINE SULFATE INJ 2 MG INJ IVP PRN (05:50)
[2017-02-05] MEDS: NEURONTIN CAP 300 MG PO SCH ×3 (05:51→22:05)
[2017-02-05 06:24] LABS: BASOPHILS # (AUTO) 0.1 X10^3/uL (0.0-0.1); BASOPHILS % (AUTO) 0.9 % (0.2-1.0); EOSINOPHILS # (AUTO) 0.4 x10^3/uL (0.0-0.2); HEMATOCRIT 25.8 % (36.0-47.0); HEMOGLOBIN 8.7 g/dL (12.0-16.0); LYMPHOCYTES # (AUTO) 1.3 X10^3/uL (1.3-2.9); LYMPHOCYTES % (AUTO) 15.7 % (21.0-51.0); MEAN CORPUSCULAR HEMOGLOBIN 30.5 pg (27.0-34.0); MEAN CORPUSCULAR HGB CONC 33.7 g/dL (33.0-35.0); MEAN CORPUSCULAR VOLUME 90.4 fL (80.0-100.0); MEAN PLATELET VOLUME 9.1 fL (7.4-11.0); MONOCYTES % (AUTO) 11.5 % (0.0-13.0); NEUTROPHILS # (AUTO) 5.6 x10^3/uL (2.2-4.8); NEUTROPHILS % (AUTO) 66.9 % (42.0-75.0); PLATELET COUNT 458 X10^3/uL (150.0-450.0); RED BLOOD COUNT 2.85 X10^6/uL (3.5-5.4); RED CELL DISTRIBUTION WIDTH 16.9 % (11.6-16.5); WHITE BLOOD COUNT 8.4 X10^3/uL (3.6-10.0)
[2017-02-05 06:45] LABS: ALANINE AMINOTRANSFERASE 10 Units/L (12-78); ALBUMIN 1.5 g/dL (3.4-5.0); ALKALINE PHOSPHATASE 141 Units/L (46-116); ASPARTATE AMINO TRANSFERASE 10 Units/L (15-37); BLOOD UREA NITROGEN 10 mg/dL (7-18); CALCIUM 8.2 mg/dL (8.5-10.1); CARBON DIOXIDE 22.5 mmol/L (21-32); CHLORIDE 111 mmol/L (98-107); COR CA(FOR HYPOALB) 10.2 mg/dL (8.5-10.1); COR NA(FOR HYPERGLY) 142 mmol/L (136-145); CREATININE 0.75 mg/dL (0.55-1.02); SODIUM 142 mmol/L (136-145); TOTAL PROTEIN 5.3 g/dL (6.4-8.2); eGFR BLACK RACES > 60 (>60); eGFR NON BLACK RACES > 60 (>60)
[2017-02-05] MEDS: NS 1000 ML 1,000 ML IV SCH ×2 (09:18→22:12)
[2017-02-05] MEDS: NICOTINE PATCH TD SCH (09:19)
[2017-02-05] MEDS: KLONOPIN TAB 1 MG PO SCH ×2 (09:19→22:06)
[2017-02-05] MEDS: VANCOMYCIN 1 GM PREMIX (ADDVANTAGE) 250 ML IV SCH ×2 (09:19→22:09)
[2017-02-05] MEDS: PriLOSEC PO SCH (09:20)
[2017-02-05] MEDS: CLARITIN PO SCH (09:20)
[2017-02-05] MEDS: CELEXA PO SCH (09:20)
[2017-02-05] MEDS: K-DUR TAB 20 MEQ PO SCH (09:20)
[2017-02-05] MEDS: ZESTRIL TAB 5 MG PO SCH (09:21)
[2017-02-05] MEDS: NORCO 5/325 MG TAB PO PRN (13:49)
[2017-02-05 20:31] LABS: CREATININE 0.81 mg/dL (0.55-1.02); VANCOMYCIN,TROUGH 13.2 ug/mL (15-20)
[2017-02-05] MEDS: SINEquan PO SCH (22:06)
[2017-02-05] MEDS: AMBIEN PO PRN (22:06)
[2017-02-05] MEDS: PHARMACY CONSULT - VANCOMYCIN XX SCH (22:13)
[2017-02-06] MEDS: PROVENTIL NEB TX 0.083% 2.5MG/ 3ML NEB SCH ×3 (00:28→11:30)
[2017-02-06] MEDS: PERCOCET TAB 5/325 MG PO SCH ×4 (04:39→21:23)
[2017-02-06] MEDS: NEURONTIN CAP 300 MG PO SCH ×3 (05:01→21:23)
[2017-02-06 05:25] LABS: BASOPHILS # (AUTO) 0.1 X10^3/uL (0.0-0.1); BASOPHILS % (AUTO) 1.2 % (0.2-1.0); EOSINOPHILS # (AUTO) 0.4 x10^3/uL (0.0-0.2); EOSINOPHILS % (AUTO) 4.1 % (0.9-2.9); HEMATOCRIT 31.4 % (36.0-47.0); HEMOGLOBIN 10.2 g/dL (12.0-16.0); LYMPHOCYTES # (AUTO) 1.7 X10^3/uL (1.3-2.9); LYMPHOCYTES % (AUTO) 18.6 % (21.0-51.0); MEAN CORPUSCULAR HEMOGLOBIN 29.5 pg (27.0-34.0); MEAN CORPUSCULAR HGB CONC 32.5 g/dL (33.0-35.0); MEAN CORPUSCULAR VOLUME 90.6 fL (80.0-100.0); MEAN PLATELET VOLUME 9.4 fL (7.4-11.0); MONOCYTES # (AUTO) 0.9 x10^3/uL (0.3-0.8); NEUTROPHILS # (AUTO) 5.9 x10^3/uL (2.2-4.8); NEUTROPHILS % (AUTO) 66.1 % (42.0-75.0); PLATELET COUNT 542 X10^3/uL (150.0-450.0); RED BLOOD COUNT 3.46 X10^6/uL (3.5-5.4); RED CELL DISTRIBUTION WIDTH 16.6 % (11.6-16.5); WHITE BLOOD COUNT 8.9 X10^3/uL (3.6-10.0)
[2017-02-06 05:34] LABS: ALANINE AMINOTRANSFERASE 12 Units/L (12-78); ALBUMIN 1.8 g/dL (3.4-5.0); ALKALINE PHOSPHATASE 169 Units/L (46-116); ASPARTATE AMINO TRANSFERASE 15 Units/L (15-37); BLOOD UREA NITROGEN 10 mg/dL (7-18); CALCIUM 8.8 mg/dL (8.5-10.1); CARBON DIOXIDE 24.3 mmol/L (21-32); CHLORIDE 108 mmol/L (98-107); COR CA(FOR HYPOALB) 10.6 mg/dL (8.5-10.1); CREATININE 0.72 mg/dL (0.55-1.02); SODIUM 141 mmol/L (136-145); TOTAL PROTEIN 6.4 g/dL (6.4-8.2); eGFR BLACK RACES > 60 (>60); eGFR NON BLACK RACES > 60 (>60)
[2017-02-06] MEDS: CELEXA PO SCH (09:00)
[2017-02-06] MEDS: KLONOPIN TAB 1 MG PO SCH ×2 (09:01→20:12)
[2017-02-06] MEDS: K-DUR TAB 20 MEQ PO SCH (09:01)
[2017-02-06] MEDS: ZESTRIL TAB 5 MG PO SCH (09:01)
[2017-02-06] MEDS: CLARITIN PO SCH (09:02)
[2017-02-06] MEDS: PriLOSEC PO SCH (09:02)
[2017-02-06] MEDS: NICOTINE PATCH TD SCH (09:03)
[2017-02-06] MEDS: VANCOMYCIN 1 GM PREMIX (ADDVANTAGE) 250 ML IV SCH ×2 (10:52→21:23)
[2017-02-06] MEDS: MORPHINE SULFATE INJ 2 MG INJ IVP PRN ×3 (10:59→20:12)
[2017-02-06] MEDS: SINEquan PO SCH (20:12)
[2017-02-06] MEDS ORDERED: D5W 250 ML IV 0 ML IV ONE (20:23)
[2017-02-06] MEDS ORDERED: VANCOMYCIN HCL 1 GM VIAL ONE (20:23)
[2017-02-06] MEDS ORDERED: NS 250 ML IV 250 ML IV ONE (21:19)
[2017-02-06] MEDS: PHARMACY CONSULT - VANCOMYCIN XX SCH (21:23)
[2017-02-07] MEDS: PROVENTIL NEB TX 0.083% 2.5MG/ 3ML NEB SCH ×4 (00:50→17:39)
[2017-02-07] MEDS: PERCOCET TAB 5/325 MG PO SCH ×3 (03:21→17:24)
[2017-02-07] MEDS: NS 1000 ML 1,000 ML IV SCH (03:22)
[2017-02-07 05:25] LABS: ALANINE AMINOTRANSFERASE 11 Units/L (12-78); ALBUMIN 1.6 g/dL (3.4-5.0); ALKALINE PHOSPHATASE 151 Units/L (46-116); ASPARTATE AMINO TRANSFERASE 14 Units/L (15-37); BLOOD UREA NITROGEN 8 mg/dL (7-18); CARBON DIOXIDE 25.5 mmol/L (21-32); CHLORIDE 108 mmol/L (98-107); COR CA(FOR HYPOALB) 9.9 mg/dL (8.5-10.1); CREATININE 0.81 mg/dL (0.55-1.02); SODIUM 140 mmol/L (136-145); TOTAL PROTEIN 5.6 g/dL (6.4-8.2); eGFR BLACK RACES > 60 (>60); eGFR NON BLACK RACES > 60 (>60)
[2017-02-07 05:26] LABS: BASOPHILS # (AUTO) 0.1 X10^3/uL (0.0-0.1); EOSINOPHILS # (AUTO) 0.3 x10^3/uL (0.0-0.2); EOSINOPHILS % (AUTO) 3.6 % (0.9-2.9); HEMATOCRIT 25.5 % (36.0-47.0); HEMOGLOBIN 8.7 g/dL (12.0-16.0); LYMPHOCYTES # (AUTO) 1.5 X10^3/uL (1.3-2.9); LYMPHOCYTES % (AUTO) 18.7 % (21.0-51.0); MEAN CORPUSCULAR HEMOGLOBIN 30.7 pg (27.0-34.0); MEAN CORPUSCULAR HGB CONC 33.9 g/dL (33.0-35.0); MEAN CORPUSCULAR VOLUME 90.8 fL (80.0-100.0); MEAN PLATELET VOLUME 9.2 fL (7.4-11.0); MONOCYTES # (AUTO) 0.9 x10^3/uL (0.3-0.8); MONOCYTES % (AUTO) 11.4 % (0.0-13.0); NEUTROPHILS # (AUTO) 5.2 x10^3/uL (2.2-4.8); NEUTROPHILS % (AUTO) 65.3 % (42.0-75.0); PLATELET COUNT 477 X10^3/uL (150.0-450.0); RED BLOOD COUNT 2.81 X10^6/uL (3.5-5.4)
[2017-02-07] MEDS: NEURONTIN CAP 300 MG PO SCH ×2 (05:42→13:26)
[2017-02-07] MEDS: MORPHINE SULFATE INJ 2 MG INJ IVP PRN ×2 (05:46→18:46)
[2017-02-07] MEDS: NICOTINE PATCH TD SCH (09:25)
[2017-02-07] MEDS: KLONOPIN TAB 1 MG PO SCH (09:26)
[2017-02-07] MEDS: CLARITIN PO SCH (09:26)
[2017-02-07] MEDS: K-DUR TAB 20 MEQ PO SCH (09:26)
[2017-02-07] MEDS: CELEXA PO SCH (09:26)
[2017-02-07] MEDS: PriLOSEC PO SCH (09:26)
[2017-02-07] MEDS: ZESTRIL TAB 5 MG PO SCH (09:26)
[2017-02-07] MEDS ORDERED: HEMOCYTE-PLUS PO SCH (10:00)
--- NOTE | 2017-02-07 10:35 | RAD ---
Examination: Right foot, three views History: Fell 5 months ago with fracture Comparison reference: Right ankle, 02/01/2017 Findings: Three views of the right foot were obtained with a posterior splint or cast in place. Detai l is limited. Partially threaded surgical screws are present in the distal tibia. There is no evidenc e for foot fracture or dislocation, bone destruction or pathologic calcification. There is small calc aneal enthesophytes are observed. Impression: Postsurgical changes distal tibia. No acute foot abnormality demonstrated. Reported By:
--- NOTE | 2017-02-07 10:57 | PCM.PROG ---
Progress Note - Progress Note for Day of Date: 02/06/17 - Subjective Subjective: her cultures are negative. her wopund looks good. no need for PICC line. continue NWB till further advise. regular dressing alcazar marilin 3 days. follow up in office 2 weeks. - Past Medical Family Social History Allergies: Allergies metoclopramide [From Reglan] Allergy (Verified 01/31/17 08:12) - Vital Signs and I&O's Vital Signs: Temperature 97.7 F Pulse Rate [Right Brachial] 100 Pulse Rate [Left Radial] 106 Pulse Rate 100 Respiratory Rate 13 Blood Pressure [Right Arm] 96/50 Blood Pressure [Left Arm] 105/58 Blood Pressure 119/70 O2 Sat by Pulse Oximetry 98 Intake and Output: Intake & Output 02/04/17 02/05/17 02/06/17 02/07/17 12:59 11:59 11:59 11:59 Intake Total 1220 2600 Balance 1220 2600 - Physical Exam Oriented: Normal Eyes: Normal Ear: Normal Nose: Normal Throat: Normal Cardiovascular: Normal : Normal Auscultation: Bowel Sounds: Normal Tenderness: Normal Skin: Normal Musculoskeletal: Right, Ankle, Tender (wound dehisence with exposed plate. ) Psychiatric: Normal Mood Description: Calm Affect: Normal Speech Pattern: Clear, Appropriate - Laboratory and Diagnostics Result Diagrams: 02/07/17 04:35 02/07/17 04:35 Labs: 02/01/17 13:18 Ankle - Right Gram Stain - Final 02/01/17 13:18 Ankle - Right Wound Culture - Final 01/30/17 14:31 Blood Blood Culture - Final 01/30/17 14:21 Blood Blood Culture - Final 01/31/17 10:48 Ankle - Right Gram Stain - Final 01/31/17 10:48 Ankle - Right Wound Culture - Final Laboratory WBC 8.0 X10^3/uL (3.6-10.0) 02/07/17 04:35 RBC 2.81 X10^6/uL (3.5-5.4) L 02/07/17 04:35 Hgb 8.7 g/dL (12.0-16.0) L 02/07/17 04:35 Hct 25.5 % (36.0-47.0) L 02/07/17 04:35 MCV 90.8 fL (80.0-100.0) 02/07/17 04:35 MCH 30.7 pg (27.0-34.0) 02/07/17 04:35 MCHC 33.9 g/dL (33.0-35.0) 02/07/17 04:35 RDW 16.0 % (11.6-16.5) 02/07/17 04:35 Plt Count 477 X10^3/uL (150.0-450.0) H 02/07/17 04:35 Plt Count Comment Increased (ADEQUATE) A 01/30/17 14:21 MPV 9.2 fL (7.4-11.0) 02/07/17 04:35 Neut % 65.3 % (42.0-75.0) 02/07/17 04:35 Lymph % 18.7 % (21.0-51.0) L 02/07/17 04:35 [place] % 11.4 % (0.0-13.0) 02/07/17 04:35 Eos % 3.6 % (0.9-2.9) H 02/07/17 04:35 Baso % 1.0 % (0.2-1.0) 02/07/17 04:35 Neut # 5.2 x10^3/uL (2.2-4.8) H 02/07/17 04:35 Lymph # 1.5 X10^3/uL (1.3-2.9) 02/07/17 04:35 [place] # 0.9 x10^3/uL (0.3-0.8) H 02/07/17 04:35 Eos # 0.3 x10^3/uL (0.0-0.2) H 02/07/17 04:35 Baso # 0.1 X10^3/uL (0.0-0.1) 02/07/17 04:35 Absolute Nucleated RBC 0.0 /100WBC 02/07/17 04:35 Plt Morphology Comment Normal (NORMAL) 01/30/17 14:21 RBC Morphology Normal (NORMAL) 01/30/17 14:21 ESR 37 MM/HOUR (0-20) H 01/31/17 03:35 Sodium 140 mmol/L (136-145) 02/07/17 04:35 Corrected Sodium TNP 02/07/17 04:35 Potassium 3.7 mmol/L (3.5-5.1) 02/07/17 04:35 Chloride 108 mmol/L (98-107) H 02/07/17 04:35 Carbon Dioxide 25.5 mmol/L (21-32) 02/07/17 04:35 BUN 8 mg/dL (7-18) 02/07/17 04:35 Creatinine 0.81 mg/dL (0.55-1.02) 02/07/17 04:35 Est GFR (MDRD) Af Amer > 60 (>60) 02/07/17 04:35 Est GFR (MDRD) Non-Af > 60 (>60) 02/07/17 04:35 Glucose 94 mg/dL (65-99) 02/07/17 04:35 Calcium 8.0 mg/dL (8.5-10.1) L 02/07/17 04:35 Corrected Calcium 9.9 mg/dL (8.5-10.1) 02/07/17 04:35 Total Bilirubin 0.20 mg/dL (0.2-1.0) 02/07/17 04:35 AST 14 Units/L (15-37) L 02/07/17 04:35 ALT 11 Units/L (12-78) L 02/07/17 04:35 Alkaline Phosphatase 151 Units/L (46-116) H 02/07/17 04:35 C-Reactive Protein 5.20 mg/L (0-3.0) H 01/31/17 03:35 Total Protein 5.6 g/dL (6.4-8.2) L 02/07/17 04:35 Albumin 1.6 g/dL (3.4-5.0) L 02/07/17 04:35 Globulin 4.0 g/dL (2.5-4.5) 02/07/17 04:35 Albumin/Globulin Ratio 0.4 Ratio (1.1-2.1) L 02/07/17 04:35 Amylase 19 Units/L (25-115) L 01/31/17 03:35 Lipase 50 Units/L (73-393) L 01/31/17 03:35 Carcinoembryonic Ag 6.2 ng/mL (0.0-3.0) H 01/30/17 14:21 Specimen Type Clean catch urine 01/30/17 21: Urine Color Yellow (YELLOW) 01/30/17 21: Urine Appearance Clear (CLEAR) 01/30/17 21: Urine pH 5.0 (5.0 - 8.0) 01/30/17 21:33 Ur Specific [place] 1.010 (1.000-1.030) 01/30/17 21: Urine Protein 1+ (NEGATIVE) 01/30/17 21: Urine Glucose (UA) Negative (NEGATIVE) 01/30/17 21: Urine Ketones Negative (NEGATIVE) 01/30/17 21: Urine Occult Blood 1+ (NEGATIVE) 01/30/17 21: Urine Nitrite Negative (NEGATIVE) 01/30/17: Urine Bilirubin Negative (NEGATIVE) 01/30/17 21: Urine Urobilinogen Normal (NORMAL) 01/30/17 21:33 Ur Leukocyte Esterase Negative (NEGATIVE) 01/30/17 21: Urine RBC 2-3 /HPF (NEGATIVE) 01/30/17 21:33 Urine WBC 0-1 /HPF (NEGATIVE) 01/30/17 21:33 Ur Squamous Epith Cells Few /HPF (NEGATIVE) 01/30/17 21: Urine Bacteria 1+ /HPF (NEGATIVE) 01/30/17 21: Hyaline Casts Rare /LPF (NEGATIVE) 01/30/17 21:33 Ur Culture Indicated? No/not indicated 01/30/17 21:33 Stool Description 150 g ibarra/loose 02/02/17 21:00 Stl Occult Blood (IFOB) Negative (NEGATIVE) 02/02/17 21:00 Vancomycin Trough 13.2 ug/mL (15-20) L 02/05/17 20:05 - Plan (1) Wound of right ankle Status: Acute Plan: NON weight bearing till further advise. follow up asa dvised. keep the dressing cleana nd dry.
[2017-02-07 11:58] LABS: BASOPHILS # (AUTO) 0.1 X10^3/uL (0.0-0.1); BASOPHILS % (AUTO) 0.7 % (0.2-1.0); EOSINOPHILS # (AUTO) 0.3 x10^3/uL (0.0-0.2); EOSINOPHILS % (AUTO) 3.8 % (0.9-2.9); HEMATOCRIT 26.3 % (36.0-47.0); HEMOGLOBIN 8.8 g/dL (12.0-16.0); LYMPHOCYTES # (AUTO) 1.5 X10^3/uL (1.3-2.9); LYMPHOCYTES % (AUTO) 19.8 % (21.0-51.0); MEAN CORPUSCULAR HGB CONC 33.4 g/dL (33.0-35.0); MEAN PLATELET VOLUME 8.8 fL (7.4-11.0); MONOCYTES % (AUTO) 12.9 % (0.0-13.0); NEUTROPHILS # (AUTO) 4.8 x10^3/uL (2.2-4.8); NEUTROPHILS % (AUTO) 62.8 % (42.0-75.0); PLATELET COUNT 487 X10^3/uL (150.0-450.0); RED BLOOD COUNT 2.92 X10^6/uL (3.5-5.4); RED CELL DISTRIBUTION WIDTH 16.4 % (11.6-16.5); WHITE BLOOD COUNT 7.7 X10^3/uL (3.6-10.0)
[2017-02-07 18:03] VITALS: BP 99/53
--- NOTE | 2017-02-09 16:26 | OR.GENERIC ---
Post-Op Note Generic - Post-Op Note Operative Report: preoperative diagnosis- RIGHT ankle nonhealing wound. Postoperative diagnosis -RIGHT ankle infected wound, implant loosening RIGHT ankle Procedure-1. Deep Debridement and primary closure of the RIGHT ankle wound 2. Implant removal right ANKLE. indication-patient 47-year-old female had a RIGHT ankle surgery elsewhere in the palm off for open reduction internal fixation with plates and screws. Patient had issues with the wound healing over the lateral aspect for the last few months. She had her initial open reduction internal fixation about 5 months ago. She was seen by her primary care physician and admitted for infected wound RIGHT ankle. I was consulted for same. On examination there was a wound over the lower aspect of the incision which measured about 5 cm into 2 cm into 2 cm. Slough and vijay purulent discharge was noted. The base of the ulcer of the wound was the plate on the lateral aspect of the fibula. an CT scan of the ankle showed an healed fracture. No obvious signs of sequestrum or involucrum suggesting chronic osteomyelitis was noted. Patient was informed that this is a open wound which will require debridement and has exposed the plate and the bone and there is very high possibility of subacute osteomyelitis. It was suggested that she wanted to go through and deep debridement of the wound and also primary wound closure. The possibility of further nonhealing, need for further debridement, chronic ankle pain and ankle stiffness were discussed with her. Her past history is significant for narcotic dependence. She also seems to be noncompliant to follow-up with instructions. procedure-patient was seen in the preoperative holding area. RIGHT limb was marked. Antibiotics were withheld preoperatively to get definitive culture intraoperative. Patient got a regional block. Again consent was revisited. Patient was brought to the operating room. Patient was placed supine and placed under general anesthesia. A bump placed under her RIGHT buttock. Patient was safely strapped to the operative table. RIGHT limb prepped and draped. Debridement of further skin subcutaneous is tissue and deep tissue terminal. After debridement there was a defect of about 3 into 6 cm. At this time the implant was noted to be loosened. Feel the screws started to back out. There was signs of infection which might affect the bone. So it was decided to proceed with the removal of the implant. The implant was removed in toto including the lag screw without much difficulty as it was already loose. Debridement of the undersurface of the plate was done and cultures were sent with deep cultures. Thorough irrigation done at this time with 5 L of normal saline.fracture seemed to have healed and no obvious fracture site was visible.after this anterior and posterior flaps were elevated and incision extended up one below to facilitate tension-free closure. The skin edges. After the evaluation of the flaps the wound was closed in layers without any tension. the skin edges were pink and viable. Sterile dressing was applied. Splint was placed. Patient was awoken up from the surgery. She was stable when she was shifted to the PACU. Discussed the findings and the procedure with the in the waiting room. Discussed with them the importance of being compliant with follow -up as well as nonweightbearing until further advice. she will currently be nonweightbearing with the help of crutches. We will wait on the culture and started on appropriate antibiotics. We will also get infectious diseases consult.
== END 2017-02-07 19:10 | disposition home health service (06) | DRG 493 ==
LOC: OBSVTOIN 12:13 → MED/SURG 12:13
PROVIDERS: ADMIT Internal Medicine; ATTEND Internal Medicine
PROC: 0SPF04Z Removal of Internal Fixation Device from Right Ankle Joint, Open Approach (ICD-10-PCS; principal; 2017-02-01 11:15)
PROC: 0JDQ0ZZ Extraction of Right Foot Subcutaneous Tissue and Fascia, Open Approach (ICD-10-PCS; 2017-02-01 11:15)
DX: M25.571 Pain in right ankle and joints of right foot (principal); T81.4XXA Infection following a procedure, initial encounter; K92.2 Gastrointestinal hemorrhage, unspecified; B95.7 Other staphylococcus as the cause of diseases classified elsewhere; R26.89 Other abnormalities of gait and mobility; Z72.0 Tobacco use; Z98.890 Other specified postprocedural states
CPT/HCPCS: 29515; 36415; 71010; 73610; 73630; 73700; 74178; 80053; 80202; 81001; 82150; 82270; 82378; 82565; 82607; 82728; 82746; 83540; 83690; 84466; 85025; 85652; 86140; 87040; 87070; 87075; 87205; 93005; 93010; 94640; 94760; 99231; A4216; A4222; B5200; J1170; J2250; J2270; J2405; J3010; J3370; J3490; J7613